=== PATIENT | male | born 1980 | race Caucasian/White ===

== ENCOUNTER 2020-07-08 08:46 | Outpatient (CLI) | payer BC ==
--- NOTE | 2020-07-08 09:20 | ULT ---
US Abdominal: 07/08/2020 12:00 AM CLINICAL HISTORY: Alcohol use with elevated LFTs.. STUDY: Complete abdominal ultrasound COMPARISON: None. FINDINGS: Liver: Size: Normal. Echogenicity: Hyperechoic consistent with hepatic steatosis. Contour: Smooth. Mass: None. Common bile duct: 5 mm Gallbladder: Normal. Pancreas: Head, body, and tail appear normal. Inferior vena cava: Normal in caliber Aorta: Normal in caliber Spleen: No focal lesions. Spleen measuring 15.0 cm in length. Right kidney: No pelvicalyceal dilatation. Right kidney measuring 10.6 cm in length. Left kidney: No pelvicalyceal dilatation. Left kidney measuring 11.2 cm in length. IMPRESSION: 1. Fatty liver 2. Splenomegaly
== END 2020-07-08 08:47 | disposition home or self-care (01) ==
LOC: SCSULT 08:46
PROVIDERS: ATTEND Internal Medicine
DX: R94.5 Abnormal results of liver function studies (principal); E66.9 Obesity, unspecified; E78.5 Hyperlipidemia, unspecified; K76.0 Fatty (change of) liver, not elsewhere classified; R16.1 Splenomegaly, not elsewhere classified; Z72.89 Other problems related to lifestyle
CPT/HCPCS: 93975